=== PATIENT | male | born 1965 ===

== ENCOUNTER 2016-10-20 11:10 | Emergency (ER) | payer OTHER ==
[2016-10-20 11:29] VITALS: BP 133/88; PULSE 89; RESP 19; TEMP 98.2; O2SAT 98; BMI 25.5
--- NOTE | 2016-10-20 12:43 | ED PDOC ---
Arrival/HPI - General Chief Complaint: Shortness Of Breath Time Seen by Provider: 10/20/16 11:19 Historian: Patient - History of Present Illness Narrative History of Present Illness (Text): 10/20/16 11: 32 A 51 year old male whose past medical history includes, cirrhosis and fluid build up, presents to the emergency department with 3 day duration shortness of breath. The patient states that he spoke to his oncologist, and he recommended that he come into the emergency department. He also notes that his last drainage was about 1 year ago. The patient denies headache, dizziness, nausea, vomiting, diarrhea, fevers, chills, abdominal pain, or any other complain. PMD: Dr. Stephens Time/Duration: Other (3 Days) Symptom Onset: Sudden Symptom Course: Unchanged Activities at Onset: Rest, Light Context: Home Past Medical History - Provider Review Nursing Documentation Reviewed: Yes - Infectious Disease Hx of Infectious Diseases: None - Cardiac Hx Pacemaker: No - Pulmonary Hx Respiratory Disorders: No - Neurological Hx Paralysis: No - HEENT Hx HEENT Disorder: No - Renal Hx Renal Disorder: Yes Hx Kidney Stones: Yes - Endocrine/Metabolic Hx Endocrine Disorders: No - Hematological/Oncological Hx Blood Transfusions: Yes Hx Blood Transfusion Reaction: No Hx Cancer: Yes (liver) - Integumentary Hx Dermatological Disorder: No - Musculoskeletal/Rheumatological Hx Musculoskeletal Disorders: No - Gastrointestinal Hx Gastrointestinal Disorders: No - Genitourinary/Gynecological Hx Genitourinary Disorders: No - Psychiatric Hx Emotional Abuse: No Hx Physical Abuse: No Hx Substance Use: No - Surgical History Hx Angiogram: Yes - Anesthesia Hx Anesthesia Reactions: No - Suicidal Assessment Feels Threatened In Home Enviroment: No Family/Social History - Physician Review Nursing Documentation Reviewed: Yes Family/Social History: No Known Family HX Smoking Status: Never Smoked Hx Alcohol Use: Yes (Quit drinking in 04/2015. "Couple/few beers/day...") Hx Substance Use: No Allergies/Home Meds Allergies/Adverse Reactions: Allergies No Known Allergies Allergy (Verified 10/20/16 11:27) Home Medications: Home Meds Medication Instructions Recorded Confirmed Furosemide [Lasix] 0 mg PO DAILY 10/20/16 10/20/16 Sorafenib Tosylate [Nexavar] 0 mg PO DAILY 10/20/16 10/20/16 Review of Systems - Physician Review All systems were reviewed & negative as marked: Yes - Review of Systems Constitutional: absent: Fevers, Night Sweats Respiratory: SOB (3 day duration) Gastrointestinal: absent: Abdominal Pain, Diarrhea, Nausea, Vomiting Neurological: absent: Headache, Dizziness Physical Exam Vital Signs Reviewed: Yes Vital Signs Temp Pulse Resp BP Pulse Ox 10/20/16 11:25 98.2 F 89 19 133/88 98 Temperature: Afebrile Blood Pressure: Normal Pulse: Regular Respiratory Rate: Normal Appearance: Positive for: Well-Appearing, Non-Toxic, Comfortable Pain Distress: None Mental Status: Positive for: Alert and Oriented X 3 - Systems Exam Head: Present: Atraumatic, Normocephalic Pupils: Present: PERRL Extroacular Muscles: Present: EOMI Conjunctiva: Present: Normal Mouth: Present: Moist Mucous Membranes Neck: Present: Normal Range of Motion Respiratory/Chest: Present: Decreased Breath Sounds (slightly diminished breath sounds at bases.) Abdomen: Present: Distention, Other (Tense) Back: Present: Normal Inspection Upper Extremity: Present: Normal Inspection. No: Cyanosis, Edema Lower Extremity: Present: Normal Inspection. No: Edema Neurological: Present: GCS=15, CN II-XII Intact, Speech Normal Skin: Present: Warm, Dry, Normal Color. No: Rashes Psychiatric: Present: Alert, Oriented x 3, Normal Insight, Normal Concentration Medical Decision Making ED Course and Treatment: 10/20/16 11: 37 Impression: A 51 year old patient presents with shortness of breath. Oncologist advised patient to come in for paracentesis. Cause of sob is likely abdominal ascites buildup. Plan: -- Labs -- US Paracentesis -- Reassess and disposition Prior Visits: Notes and results from previous visits were reviewed. On 11/10/15 patient came in complaining of a dog bite. Progress Notes: 10/20/16 13:57 Labs with no clinical changes from previous. Patient had paracentesis done by Dr. Neri; about 3400 cc were removed. CXR unremarkable - patient feeling much better - will d/c - Lab Interpretations Lab Results: 10/20/16 12:30 10/20/16 12:30 Lab Results 10/20/16 12:30: Sodium 137, Potassium 3.7, Chloride 105, Carbon Dioxide 26, Anion Gap 10, BUN 6 L, Creatinine 0.5, Est GFR ( Amer) > 60, Est GFR (Non -Af Amer) > 60, Random Glucose 107, Calcium 8.0 L, Total Bilirubin 2.7 H, AST 111 H, ALT 67 H, Alkaline Phosphatase 135 H, Total Protein 6.8, Albumin 2.6 L, Globulin 4.2, Albumin/Globulin Ratio 0.6 L, Lipase 102 10/20/16 12:30: PT 16.4 H, INR 1.52 H, APTT 28.8 10/20/16 12:30: WBC 2.4 L*, RBC 3.88, Hgb 12.7 L, Hct 36.5 L, MCV 94.1, MCH 32.7 , MCHC 34.8, RDW 16.5 H, Plt Count 40 L*, MPV 9.8, Gran % 49.3 L, Lymph % (Auto ) 34.2, [place] % (Auto) 13.1 H, Eos % (Auto) 3.0, Baso % (Auto) 0.4, Gran # 1.17 L , Lymph # 0.8 L, [place] # 0.3, Eos # 0.1, Baso # 0.01 I have reviewed the lab results: Yes - RAD Interpretation Radiology Orders: 10/20/16 11:29 PARACENTESIS [US] Stat 10/20/16 13:56 CHEST TWO VIEWS (PA/LAT) [RAD] Stat - Scribe Statement The provider has reviewed the documentation as recorded by the Scribe Charmaine Dougherty Provider Scribe Attestation: All medical record entries made by the Scribe were at my direction and personally dictated by me. I have reviewed the chart and agree that the record accurately reflects my personal performance of the history, physical exam, medical decision making, and the department course for this patient. I have also personally directed, reviewed, and agree with the discharge instructions and disposition. Disposition/Present on Arrival - Present on Arrival Any Indicators Present on Arrival: No History of DVT/PE: No History of Uncontrolled Diabetes: No Urinary Catheter: No History of Decub. Ulcer: No History Surgical Site Infection Following: None - Disposition Have Diagnosis and Disposition been Completed?: Yes Diagnosis: Ascites, Dyspnea Disposition: HOME/ ROUTINE Disposition Time: 13:55 Patient Plan: Discharge Patient Problems: Current Active Problems Problem Status Onset Ascites Acute Dyspnea Acute Condition: GOOD Discharge Instructions (ExitCare): Abdominal Paracentesis (DC), Ascites (ED) Additional Instructions: Follow up with Dr. Fontana. Return to the emergency department if any new concerning symptoms. Referrals: Marizol ESCOBAR,MD Ananth [Staff Provider] - Follow up with primary Forms: Eyewitness Surveillance (Romansh)
[2016-10-20 12:52] LABS: BASO # 0.01 K/mm3 (0.0-2.0); BASO % 0.4 % (0.0-3.0); EOS # 0.1 (0.0-0.7); GRAN # 1.17 (1.4-6.5); GRAN % 49.3 % (50.0-68.0); HEMOGLOBIN 12.7 g/dL (14.0-18.0); LYMPH # 0.8 (1.2-3.4); LYMPH % 34.2 % (22.0-35.0); MEAN CELL VOLUME 94.1 fl (80.0-105.0); MEAN CORPUSCULAR HEMOGLOBIN 32.7 pg (25.0-35.0); MEAN CORPUSCULAR HGB CONC 34.8 g/dl (31.0-37.0); MEAN PLATELET VOLUME 9.8 fl (7.0-11.0); MONO # 0.3 (0.1-0.6); MONO % 13.1 % (1.0-6.0); RBC 3.88 10^6/uL (3.5-6.1); RED CELL DISTRIBUTION WIDTH 16.5 % (11.5-14.5)
[2016-10-20 13:01] LABS: ALB/GLOB RATIO 0.6 (1.1-1.8); ALBUMIN 2.6 g/dL (3.0-4.8); ALT/SGPT 67 U/L (7-56); AST/SGOT 111 U/L (15-59); BLOOD UREA NITROGEN 6 mg/dL (7-21); GFR AFRICAN-AMERICAN > 60; GFR NON-AFRICAN AMERICAN > 60; LIPASE 102 U/L (23-300)
[2016-10-20 13:05] LABS: INR 1.52 (0.93-1.08); PARTIAL THROMBOPLASTIN TIME 28.8 Seconds (23.7-30.8); PROTHROMBIN TIME 16.4 Seconds (9.9-11.8); WHITE BLOOD COUNT 2.4 10^3/ul (4.5-11.0)
[2016-10-20 13:06] LABS: PLATELET COUNT 40 10^3/uL (120.0-450.0)
--- NOTE | 2016-10-20 14:26 | RAD ---
HISTORY: sob COMPARISON: No prior. TECHNIQUE: Chest PA and lateral FINDINGS: LUNGS: No active pulmonary disease. PLEURA: No significant pleural effusion identified. No pneumothorax apparent. CARDIOVASCULAR: Normal. OSSEOUS STRUCTURES: No significant abnormalities. VISUALIZED UPPER ABDOMEN: Normal. OTHER FINDINGS: None. IMPRESSION: No active disease.
--- NOTE | 2016-10-20 17:43 | US ---
PROCEDURE: Ultrasound guided paracentesis. HISTORY: Cirrhosis. Hepatoma. Status post chemo embolization. Recurrent ascites with abdominal pain and distention. Needs paracentesis. PHYSICIAN(S): Al Neri MD. TECHNIQUE: The relative risks and indications for the procedure were explained to the patient and informed written consent obtained. Sonography of the abdomen was performed in a supine position. This revealed a moderate amount of non-loculated ascites, greatest in the right lower quadrant. A puncture site was selected and the area was prepped and draped in the usual sterile fashion. 1% Xylocaine was used to anesthetize the skin and soft tissues. A 7 [place] paracentesis catheter was trocared into the right lower quadrantand 3400 cc of clear, straw-colored fluid aspirated. A cytology specimen was sent. IMPRESSION: Ultrasound-guided paracentesis in the right lower quadrant. 3400 cc of fluid were aspirated. A cytology specimen was sent.
== END 2016-10-20 15:03 | disposition home or self-care (01) ==
LOC: ED 11:10
DX: R06.00 Dyspnea, unspecified (principal); R18.8 Other ascites